=== PATIENT | male | born 1955 ===

== ENCOUNTER → 2016-12-09 | Outpatient (CLI) | payer OTHER ==
--- NOTE | 2016-12-09 13:08 | US ---
EXAMINATION TYPE: US abdomen complete DATE OF EXAM: 12/09/2016 COMPARISON: NONE CLINICAL HISTORY: R10 Right Upper Quadrant abdominal pain. Epigastric pain, history of kidney stones 10 years ago EXAM MEASUREMENTS: Liver Length: 17.2 cm Gallbladder Wall: 0.3 cm CBD: 0.3 cm Spleen: 9.1 cm Right Kidney: 10.4 x 6.6 x 6.4 cm Left Kidney: 10.5 x 5.9 x 5.1 cm Pancreas: Obscured by bowel gas Liver: upper limits of normal in size, attenuating, hypoechoic area near GB = 1.3 x 1.0 x 1.2cm poss ible focal sparing Gallbladder: non-mobile hyperechoic area = 0.4cm, possible polyp Evidence for sonographic Galloway's sign: No CBD: wnl Spleen: wnl Right Kidney: no evidence of hydronephrosis or mass Left Kidney: complex cystic areas noted, largest = 1.9 x 1.6 x 1.2cm at upper pole Upper IVC: wnl Abd Aorta: proximal obscured by overlying bowel Pancreas is not visualized. The liver is upper limits of normal in size and slightly echogenic and may be fatty infiltrated. Ther e is an area of focal fatty sparing near the gallbladder fossa. There is a 4 mm gallbladder polyp. The gallbladder wall measures 3 mm. The distal common hepatic duct measures 3 mm. The spleen is normal in size. The right kidney is normal. There is a 1.9 cm cystic lesion in the lower left kidney. This does not m eet the requirements of a simple cyst. Visualized portions of the aorta and IVC are normal. IMPRESSION: 1. BORDERLINE HEPATOMEGALY WITH FATTY INFILTRATION OF THE LIVER. 2. GALLBLADDER POLYP. 3. CYSTIC LESIONS WITHIN THE LEFT KIDNEY DOES NOT MEET THE REQUIREMENTS OF A SIMPLE CYST. FURTHER RICKY GING WITH CT OR MR WOULD BE SUGGESTED.
--- NOTE | 2016-12-09 15:23 | NM ---
EXAMINATION TYPE: NM hepatobiliary w EF DATE OF EXAM: 12/09/2016 COMPARISON: Ultrasound abdomen 12/09/2016 HISTORY: Right upper quadrant pain TECHNIQUE: After the intravenous administration of 5.2 mCi Tc 99m Mebrofenin hepatobiliary scintigrap hy is performed. Immediate images post injection. FINDINGS: There is satisfactory initial accumulation of tracer by the liver. The gallbladder is visualized wit hin 8 minutes. The small bowel activity is noted within 44 minutes. At one hour 8 ounces of oral en sure plus is given to mimic CCK and gallbladder ejection fraction is calculated at 68 %, in the umesh l range. Therefore there is no scintigraphic evidence of cystic or common bile duct obstruction to s uggest acute cholecystitis or gallbladder dyskinesia. IMPRESSION: Exam is within normal limits.
== END | disposition home or self-care (01) ==
LOC: RADUSMAIN 12:03
PROVIDERS: ATTEND Family Medicine
DX: K82.4 Cholesterolosis of gallbladder (principal); R16.0 Hepatomegaly, not elsewhere classified; K76.0 Fatty (change of) liver, not elsewhere classified; N28.9 Disorder of kidney and ureter, unspecified
CPT/HCPCS: 76700; 78226; A9537

== ENCOUNTER 2016-12-18 08:06 | Day surgery (SDC) | payer OTHER ==
[2016-12-17 09:00] VITALS: BMI 29.1
[~2016-12-18 08:06] MED LIST: LACTATED RINGERS 1,000 ML IV SCH; LIDOCAINE 1% 20 ML VIAL (10MG/ML) FOR IV START INTRADERMA PRN
[2016-12-18 08:45] VITALS: RESP 16; TEMP 98.1
[2016-12-18 08:56] LABS: Glucose,Whole Blood 134 mg/dL (75-99)
[2016-12-18] MEDS ORDERED: LIDOCAINE 1% INJ 10MG/ML (20 ML MDV) ONE (09:36)
[2016-12-18] MEDS ORDERED: PROPOFOL 10 MG/ML 20 ML VIAL IV ONE (09:36)
--- NOTE | 2016-12-18 09:41 | P.GSHP ---
History of Present Illness H&P Date: 12/18/16 Chief Complaint: Epigastric pain This is a 60-year-old male referred from Dr. brody. Patient presents today for EGD. He's had complaints of epigastric abdominal pain. Past Medical History Past Medical History: Diabetes Mellitus, GERD/Reflux, Hyperlipidemia, Hypertension History of Any Multi-Drug Resistant Organisms: None Reported Past Surgical History: No Surgical Hx Reported Additional Past Surgical History / Comment(s): COLONOSCOPY Past Anesthesia/Blood Transfusion Reactions: No Reported Reaction Smoking Status: Never smoker - Past Family History Sister(s) Family Medical History: Cancer Medications and Allergies Home Medications Medication Instructions Recorded Confirmed Type Aspirin 81 mg PO DAILY 12/05/13 12/17/16 History Lisinopril [Prinivil] 10 mg PO DAILY 12/05/13 12/18/16 History Ranitidine HCl 150 mg PO DAILY 12/05/13 12/18/16 History Simvastatin [Zocor] 20 mg PO DAILY 12/05/13 12/18/16 History metFORMIN HCL 1,000 mg PO BID 12/05/13 12/18/16 History [place]-3 Fatty Acids/Fish Oil [Fish 1 each PO DAILY 12/17/16 12/17/16 History Oil 1,000 mg Softgel] glipiZIDE [Glucotrol] 5 mg PO AC-[id number] 12/17/16 12/18/16 History Allergies Allergy/AdvReac Type Severity Reaction Status Date / Time No Known Allergies Allergy Verified 12/17/16 08:35 Surgical - Exam Vital Signs Temp Pulse Resp BP Pulse Ox 98.1 F 82 16 120/84 95 12/18/16 08:37 12/18/16 08:37 12/18/16 08:37 12/18/16 08:37 12/18/16 08:37 - General well developed, no distress - Eyes PERRL - ENT normal pinna - Neck no masses - Respiratory normal expansion - Cardiovascular Rhythm: regular - Abdomen Abdomen: soft, non tender Results - Labs Abnormal Lab Results - Last 24 Hours (Table) 12/18/16 Range/Units 08:48 POC Glucose (mg/dL) 134 H (75-99) mg/dL Assessment and Plan Plan: Epigastric abdominal pain. We'll perform EGD.
--- NOTE | 2016-12-18 09:47 | P.OP ---
Date of Procedure: 12/18/16 Preoperative Diagnosis: Epigastric abdominal pain Postoperative Diagnosis: Healing antral ulcer No evidence of hiatal hernia No evidence of esophagitis Procedure(s) Performed: EGD Implants: Anesthesia: MAC Surgeon: Karlos Seymour Pathology: other (Antrum) Condition: stable Disposition: PACU Indications for Procedure: Operative Findings: Description of Procedure: The patient was placed on the endoscopy table in the lateral position. The gastroscope some placed oropharynx and passed in the esophagus and into the stomach. The scope was then placed through the pylorus. The first and second portion of the duodenum appeared normal. Scope was then brought back and the antrum and there was a small healing ulcer seen. This area is biopsied. There was no active bleeding from the ulcer site. The scope was then retroflexed and the remainder stomach appeared normal. There was no hiatal hernia. The GE junction was at 40 cm. The distal esophagus appeared normal. The proximal esophagus appeared normal. Scope was withdrawn for patient. Patient was discharged on omeprazole 40 mg by mouth daily.
[2016-12-18 10:02] VITALS: BP 100/64; PULSE 76
== END 2016-12-18 10:25 | disposition home or self-care (01) ==
LOC: ORWHC2ENDO 08:06
PROVIDERS: ATTEND Surgery
DX: K29.50 Unspecified chronic gastritis without bleeding (principal); K25.9 Gastric ulcer, unspecified as acute or chronic, without hemorrhage or perforation; K21.9 Gastro-esophageal reflux disease without esophagitis; E11.9 Type 2 diabetes mellitus without complications; Z79.84 Long term (current) use of oral hypoglycemic drugs; E78.5 Hyperlipidemia, unspecified; I10 Essential (primary) hypertension; Z79.82 Long term (current) use of aspirin; Z79.899 Other long term (current) drug therapy
CPT/HCPCS: 88305; 88342; 43239; J2001; J2704

== ENCOUNTER 2016-12-25 09:22 | Day surgery (SDC) | payer OTHER ==
[2016-12-23 10:04] VITALS: BMI 29.1
[~2016-12-25 09:22] MED LIST changes: +DEXAMETHASONE SOD PHOSPHATE 10 MG/ML 1 ML VIAL IV ONE; +HEPARIN SODIUM,PORCINE 5,000 UNIT/ML 1 ML VIAL SQ ONE; +HYDROmorphone 1 MG/ML 1 ML SYRINGE IVP PRN; +LACTATED RINGERS 1,000 ML IV ONE; -LACTATED RINGERS 1,000 ML IV SCH; -LIDOCAINE 1% 20 ML VIAL (10MG/ML) FOR IV START INTRADERMA PRN; +MIDAZOLAM 2 MG/2 ML VIAL IV PRN; +ONDANSETRON 4 MG/2 ML VIAL IVP ONE; +SCOPOLAMINE 1.5MG/72HR PATCH TRANSDERM ONE; +ceFAZolin 2 GM in SODIUM CHLORIDE 0.9% 100 ML IVPB ONE
[2016-12-25 09:47] LABS: Glucose,Whole Blood 152 mg/dL (75-99)
[2016-12-25] MEDS ORDERED: LIDOCAINE 1% 20 ML VIAL (10MG/ML) FOR IV START INTRADERMA ONE (09:50)
--- NOTE | 2016-12-25 10:16 | P.GSHP ---
History of Present Illness H&P Date: 12/25/16 Chief Complaint: Epigastric and right upper quadrant pain This is a 59-year-old male who presents today for laparoscopic cholecystectomy. Patient had recent complaints of epigastric right upper quadrant pain. His ultrasound shows evidence of a gallstone or gallbladder wall polyp. He presents today for laparoscopic was taken for chronic cholecystitis. - Constitutional Constitutional: Reports as per HPI Past Medical History Past Medical History: Diabetes Mellitus, GERD/Reflux, Hyperlipidemia, Hypertension History of Any Multi-Drug Resistant Organisms: None Reported Past Surgical History: No Surgical Hx Reported Additional Past Surgical History / Comment(s): COLONOSCOPY Past Anesthesia/Blood Transfusion Reactions: No Reported Reaction Past Psychological History: No Psychological Hx Reported Smoking Status: Never smoker Past Alcohol Use History: None Reported Past Drug Use History: None Reported - Past Family History Sister(s) Family Medical History: Cancer Medications and Allergies Home Medications Medication Instructions Recorded Confirmed Type Aspirin 81 mg PO DAILY 12/05/13 12/25/16 History Lisinopril [Prinivil] 10 mg PO HS 12/05/13 12/25/16 History Ranitidine HCl 150 mg PO HS 12/05/13 12/25/16 History Simvastatin [Zocor] 20 mg PO HS 12/05/13 12/25/16 History metFORMIN HCL 1,000 mg PO BID 12/05/13 12/25/16 History [place]-3 Fatty Acids/Fish Oil [Fish 1 each PO DAILY 12/17/16 12/25/16 History Oil 1,000 mg Softgel] glipiZIDE [Glucotrol] 5 mg PO HS 12/17/16 12/25/16 History Omeprazole 40 mg PO HS 12/23/16 12/25/16 History Allergies Allergy/AdvReac Type Severity Reaction Status Date / Time No Known Allergies Allergy Verified 12/25/16 09:53 Surgical - Exam Vital Signs Temp Pulse Resp BP Pulse Ox 98.3 F 85 20 146/65 94 L 12/25/16 09:42 12/25/16 09:42 12/25/16 09:42 12/25/16 09:42 12/25/16 09:42 - General well developed, no distress - Eyes PERRL - ENT normal pinna - Neck no masses - Respiratory normal expansion - Cardiovascular Rhythm: regular - Abdomen Mild right upper quadrant tenderness Abdomen: soft Results - Labs Abnormal Lab Results - Last 24 Hours (Table) 12/25/16 Range/Units 09:44 POC Glucose (mg/dL) 152 H (75-99) mg/dL Assessment and Plan Plan: Right upper quadrant pain Chronic cholecystitis We'll perform laparoscopic cholecystectomy
[2016-12-25] MEDS ORDERED: BUPIVACAIN-EPI 0.5%-1:200,000 30 ML VIAL SQ ONE (10:21)
[2016-12-25] MEDS ORDERED: MIDAZOLAM 2 MG/2 ML VIAL ONE (10:34)
[2016-12-25] MEDS ORDERED: NEOSTIGMINE 1 MG/ML 10 ML VIAL ONE (10:34)
[2016-12-25] MEDS ORDERED: LIDOCAINE 1% INJ 10MG/ML (20 ML MDV) ONE (10:34)
[2016-12-25] MEDS ORDERED: KETOROLAC 30 MG/ML 1 ML VIAL ONE (10:34)
[2016-12-25] MEDS ORDERED: HYDROmorphone (PF) 1 MG/ML ONE (10:34)
[2016-12-25] MEDS ORDERED: GLYCOPYRROLATE 0.2 MG/ML 2 ML VIAL ONE (10:34)
[2016-12-25] MEDS ORDERED: PROPOFOL 10 MG/ML 20 ML VIAL IV ONE (10:34)
[2016-12-25] MEDS ORDERED: VECURONIUM 10 MG VIAL IV ONE (10:34)
[2016-12-25] MEDS ORDERED: fentaNYL (PF) 50 MCG/ML 2 ML AMP ONE (10:34)
[2016-12-25] MEDS ORDERED: LACTATED RINGERS 1,000 ML IV ONE ×3 (11:13)
--- NOTE | 2016-12-25 11:23 | P.OP ---
Date of Procedure: 12/25/16 Preoperative Diagnosis: Cholecystitis Postoperative Diagnosis: Cholecystitis Procedure(s) Performed: Laparoscopic cholecystectomy Implants: Anesthesia: CORBY Surgeon: Karlos Seymour Estimated Blood Loss (ml): 5 Pathology: other Condition: stable Disposition: PACU Indications for Procedure: Operative Findings: Description of Procedure: GaThe patient was placed on the operating table. The patient received a general endotracheal tube anesthesia. The patients abdomen was prepped and draped in the usual sterile fashion. Through an infraumbilical stab incision , the fascia of the anterior abdominal wall was grasped with a pair of Kochers and then the Veress needle was placed in the peritoneal cavity. Position of the Veress needle was confirmed with positive drop test. The abdomen was then insufflated. After adequate insufflation, the 10 mm trocar was placed in the peritoneal cavity. Following this the laparoscope was placed in the peritoneal cavity. The patient was placed in the head-up, right side up position and then a 5 mm trocar was placed in the right lateral and right subcostal position under direct visualization. A 8 mm trocar was placed in the epigastric position. The gallbladder was grasped in the fundus and infundibulum. Traction on the gallbladder was placed in the lateral and the cephalad positions. The triangle of Calot was visualized.. The cystic duct was bluntly dissected until the union of the cystic duct and common bile duct was seen. The cystic duct was then divided and sealed with the Harmonic scissors. A PDS Endoloop was then placed throughout the cystic duct stump. The cystic artery divided and sealed with the Harmonic scissors. The gallbladder was then removed from the liver bed using Harmonic scissors. The gallbladder was then extracted through the epigastric port site. Operative field was checked for any bleeding spots and Harmonic scissors was used to coagulate the liver bed. The abdomen was irrigated. The trocars were removed. The skin was closed using interrupted 3-0 Vicryl suture. Dermabond dressing were applied. The patient tolerated the procedure well.
[2016-12-25 11:40] VITALS: TEMP 97
[2016-12-25 11:54] LABS: Glucose,Whole Blood 203 mg/dL (75-99)
[2016-12-25 13:37] VITALS: RESP 18
[2016-12-25 13:59] LABS: Glucose,Whole Blood 190 mg/dL (75-99)
[2016-12-25 15:22] VITALS: BP 141/75; PULSE 89
== END 2016-12-25 15:49 | disposition home or self-care (01) ==
LOC: OR 09:22
PROVIDERS: ATTEND Surgery
DX: K81.1 Chronic cholecystitis (principal); I10 Essential (primary) hypertension; E78.5 Hyperlipidemia, unspecified; E11.9 Type 2 diabetes mellitus without complications; K21.9 Gastro-esophageal reflux disease without esophagitis; Z79.84 Long term (current) use of oral hypoglycemic drugs; Z79.82 Long term (current) use of aspirin; Z79.899 Other long term (current) drug therapy
CPT/HCPCS: 47562; 88304; J2250; J1644; J1100; J2710; J0690; J2405; J2001; J3010; J1885; J1170; J2704

== ENCOUNTER 2018-09-23 14:45 | Observation (INO) | payer OTHER ==
[2018-09-23] MEDS ORDERED: ASPIRIN 81 MG PO STA (15:15)
[2018-09-23] MEDS ORDERED: RX INFO: IV CONTRAST WAS GIVEN 1 EACH MISC MISCELLANE PRN (15:18)
[2018-09-23 15:43] LABS: ALT 32 U/L (21-72); AST 22 U/L (17-59); Albumin 4.6 g/dL (3.5-5.0); Alkaline Phosphatase 49 U/L (38-126); Anion Gap 11 mmol/L; Blood Urea Nitrogen 22 mg/dL (9-20); Calcium 9.4 mg/dL (8.4-10.2); Carbon Dioxide 23 mmol/L (22-30); Chloride 105 mmol/L (98-107); Glucose 159 mg/dL (74-99); Magnesium 1.9 mg/dL (1.6-2.3); Potassium 3.9 mmol/L (3.5-5.1); Sodium 139 mmol/L (137-145); Total Bilirubin 0.6 mg/dL (0.2-1.3); Total Protein 7.4 g/dL (6.3-8.2)
[2018-09-23 15:47] LABS: Basophils % (A) 1 %; Eosinophils # (A) 0.1 k/uL (0-0.7); Eosinophils % (A) 1 %; HCT 41.2 % (39.0-53.0); HGB 13.5 gm/dL (13.0-17.5); Lymphocytes % (A) 31 %; MCH 28.7 pg (25.0-35.0); MCHC 32.7 g/dL (31.0-37.0); MCV 87.8 fL (80.0-100.0); Mean Platelet Volume 8.3; Monocytes # (A) 0.3 k/uL (0-1.0); Monocytes % (A) 4 %; Neutrophils % (A) 62 %; Platelet Count 202 k/uL (150-450); RBC 4.69 m/uL (4.30-5.90); RDW 13.1 % (11.5-15.5); WBC 6.5 k/uL (3.8-10.6)
[2018-09-23 15:49] LABS: Partial Thromboplastin Time 23.2 sec (22.0-30.0); Prothrombin Time 10.3 sec (9.0-12.0)
--- NOTE | 2018-09-23 17:11 | XR ---
EXAMINATION TYPE: XR chest 2V DATE OF EXAM: 09/23/2018 COMPARISON: NONE HISTORY: Chest pain TECHNIQUE: Frontal and lateral views of the chest are obtained. FINDINGS: Heart and mediastinum are normal. Lungs are clear. Diaphragm is normal. Bony thorax is int act. Pulmonary vascularity is normal. There are chest leads. IMPRESSION: Normal chest.
--- NOTE | 2018-09-23 17:27 | CT ---
EXAMINATION TYPE: CT angio head neck DATE OF EXAM: 09/23/2018 HISTORY: Left sided facial and arm numbness with Chest pain for 3 weeks COMPARISON: CT DLP: 1903.5 mGycm. Automated Exposure Control for Dose Reduction was Utilized. TECHNIQUE: CTA scan of the neck is performed with IV Contrast, patient injected with 65 mL of Isovue 370, axial images are obtained, coronal and sagittal reformatted images are reviewed. Three-D recons tructed images are created on an independent workstation and reviewed. FINDINGS: The noncontrast images of the brain show cerebral atrophy. There is no mass effect nor midline shift. There is no sign of intracranial hemorrhage. There is arterial flow in the common internal and external carotid arteries bilaterally. There is art erial flow in the vertebrobasilar artery system. There is bilateral arterial flow in the basilar sonya harsha which are fairly symmetric. There is normal branching pattern of the great vessels on the aortic arch. There is bilateral flow in the subclavian arteries. There is no evidence of arterial stenosis in the neck. There is normal contrast opacification of the venous sinuses. There is arterial flow in the anterior middle and posterior cerebral arteries. I see no evidence of intracranial arterial stenosis. There is no aneurysm or neovascularity. IMPRESSION: Negative CT angiogram of the neck. Negative CT angiogram of the brain.
--- NOTE | 2018-09-23 19:08 | ED ---
Chest Pain HPI - General Chief Complaint: Chest Pain Stated Complaint: Chest Pain, Facial Numbness Time Seen by Provider: 09/23/18 15:01 Source: patient, family Mode of arrival: ambulatory Limitations: no limitations - History of Present Illness Initial Comments: The patient is a 62-year-old male who presents to the emergency room with complaint of chest pain. Patient notes that the symptoms have been going on for the past 2 weeks. They wax and wane. He will have sudden onset of chest pain which is located over the left side of his chest with radiation into his left arm. He admits to associated left-sided facial paresthesias as well as left upper extremity paresthesias. He admits to mild left upper extremity weakness. There is associated shortness of breath. The pain will last for several hours and then spontaneously resolved. The episodes do appear to be exacerbated by exertion. Improve with rest. He does not take any medications for his symptoms. No previous cardiac disease. His last stress test was approximately 3 years ago and was normal. There is no reported slurred speech, confusion or facial droop reported from the . Patient admits that his symptoms worsened approximately 48 hours ago and this prompted him to come in to the emergency department. He denies any visual changes. Denies abdominal pain or changes in his bowel or bladder habits. No difficulties with ambulation. Denies ataxia. No headaches, fevers or chills. Patient denies cough or hemoptysis - Related Data Home Medications Medication Instructions Recorded Confirmed Aspirin 81 mg PO DAILY 12/05/13 09/23/18 Lisinopril [Prinivil] 10 mg PO HS 12/05/13 09/23/18 Ranitidine HCl 150 mg PO HS 12/05/13 09/23/18 Simvastatin [Zocor] 20 mg PO HS 12/05/13 09/23/18 metFORMIN HCL 1,000 mg PO BID 12/05/13 09/23/18 [place]-3 Fatty Acids/Fish Oil [Fish 1 cap PO DAILY 12/17/16 09/23/18 Oil 1,000 mg Softgel] glipiZIDE [Glucotrol] 5 mg PO HS 12/17/16 09/23/18 Allergies Allergy/AdvReac Type Severity Reaction Status Date / Time No Known Allergies Allergy Verified 09/23/18 15:38 Review of Systems ROS Statement: Those systems with pertinent positive or pertinent negative responses have been documented in the HPI. ROS Other: All systems not noted in ROS Statement are negative. EKG Findings - EKG Comments: EKG Findings:: EKG demonstrates a normal sinus rhythm with a ventricular rate of 80. CT interval 180 QRS 98 QTC [address]. No acute ST segment elevations or depressions concerning for ischemic changes. Past Medical History Past Medical History: Diabetes Mellitus, GERD/Reflux, Hyperlipidemia, Hypertension History of Any Multi-Drug Resistant Organisms: None Reported Past Surgical History: No Surgical Hx Reported Additional Past Surgical History / Comment(s): COLONOSCOPY Past Anesthesia/Blood Transfusion Reactions: No Reported Reaction Past Psychological History: No Psychological Hx Reported Smoking Status: Never smoker Past Alcohol Use History: None Reported Past Drug Use History: None Reported - Past Family History Sister(s) Family Medical History: Cancer General Exam Limitations: no limitations General appearance: alert, in no apparent distress Head exam: Present: atraumatic, normocephalic, normal inspection Eye exam: Present: normal appearance, PERRL, EOMI. Absent: scleral icterus, conjunctival injection, periorbital swelling ENT exam: Present: normal exam, mucous membranes moist Neck exam: Present: normal inspection. Absent: tenderness, meningismus, lymphadenopathy Respiratory exam: Present: normal lung sounds bilaterally. Absent: respiratory distress, wheezes, rales, rhonchi, stridor Cardiovascular Exam: Present: regular rate, normal rhythm, normal heart sounds. Absent: systolic murmur, diastolic murmur, rubs, gallop, clicks GI/Abdominal exam: Present: soft, normal bowel sounds. Absent: distended, tenderness, guarding, rebound, rigid Extremities exam: Present: normal inspection, full ROM, normal capillary refill. Absent: tenderness, pedal edema, joint swelling, calf tenderness Back exam: Present: normal inspection Neurological exam: Present: alert, oriented X3, CN II-XII intact, other (Negative pronator drift. No truncal ataxia. Finger to nose is symmetric bilaterally. No dysdiadochokinesia. Equal tub chucker strength bilaterally. NIH score is 0) Psychiatric exam: Present: normal affect, normal mood Skin exam: Present: warm, dry, intact, normal color. Absent: rash Course Vital Signs 09/23/18 09/23/18 09/23/18 14:48 15:15 16:00 Temperature 98.3 F Pulse Rate 74 80 78 Respiratory 18 16 19 Rate Blood Pressure 136/84 138/80 O2 Sat by Pulse 98 96 Oximetry 09/23/18 09/23/18 17:00 18:00 Temperature Pulse Rate 77 70 Respiratory 16 15 Rate Blood Pressure 138/79 127/75 O2 Sat by Pulse 97 97 Oximetry Chest Pain MDM - Differential Diagnosis ACS, Thoracic Aortic Dissection Stroke - MDM The patient was seen by myself. He was placed into room 5. He was hooked up to continuous pulse ox and cardiac monitoring. A 12-lead EKG was performed which demonstrated normal sinus rhythm. The patient was given 324 mg of chewable aspirin. Laboratory studies were performed. The patient was sent for a chest x-ray as well as a CTA of the head and neck. The patient was reevaluated and continued to have an NIH stroke scale of 0. He was not activated as a code stroke as his symptoms started greater than 24 hours ago and he has a negative stroke scale at this time. After return of the results I did discuss them with the patient. I did recommend admission to the hospital in order to trend the patient's troponins and keep him on cardiac monitoring. I did call and discuss the case with Dr. Rose. He does accept admission for the patient. He does recommend that I place cardiology on consult for the patient's chest pain. He also recommends an MRI without contrast of the patient's brain. I do place these orders. Patient remained in stable condition and was transported to the observation unit. Disposition Clinical Impression: Chest pain Disposition: ADMITTED IP TO THIS HOSP Condition: Stable Is patient prescribed a controlled substance at d/c from ED?: No Time of Disposition: 19:08 Decision to Admit Reason: Admit from EC Decision Date: 09/23/18 Decision Time: 19:08
--- NOTE | 2018-09-23 21:15 | MR ---
EXAMINATION TYPE: MR brain wo con DATE OF EXAM: 09/23/2018 COMPARISON: None HISTORY: left side numbness Standard multiplanar, multisequence MRI departmental protocol Multiplanar, multisequence images of the brain were acquired. Diffusion weighted imaging was performe d. FINDINGS: Ventricles of normal size. There is no mass effect nor midline shift. There is no sign of i ntracranial hemorrhage. Brainstem is intact. There is mild mucosal thickening in the maxillary sinuse s and the ethmoid sinuses. There are discrete scattered multiple rounded high signal foci at the espinoza-white matter junction of b oth cerebral hemispheres. Total number is approximately 25 and these measure up to 5 mm. The corpus c allosum is intact. There is no evidence of cortical infarct. IMPRESSION: Multiple small high signal white matter foci with distribution likely related to chronic small vessel ischemia. Demyelinating disease is less likely. No evidence of cortical infarct. Minimal sinusitis.
[2018-09-23 21:30] LABS: Glucose,Whole Blood 157 mg/dL (75-99)
[2018-09-23] MEDS: INSULIN ASPART (NovoLOG) 100 UNIT/ML VIAL SQ SCH (23:33)
[2018-09-23] MEDS: LISINOPRIL 10 MG TAB PO SCH (23:33)
[2018-09-23] MEDS: ATORVASTATIN 10 MG TAB PO SCH (23:33)
[2018-09-23] MEDS: FAMOTIDINE 20 MG TAB PO SCH (23:33)
[2018-09-23] MEDS: glipiZIDE 5 MG TAB PO SCH (23:33)
[2018-09-24 03:11] LABS: Basophils # (A) 0.1 k/uL (0-0.2); Basophils % (A) 1 %; Eosinophils # (A) 0.3 k/uL (0-0.7); Eosinophils % (A) 4 %; HCT 40.3 % (39.0-53.0); HGB 13.5 gm/dL (13.0-17.5); Lymphocytes % (A) 45 %; MCH 29.3 pg (25.0-35.0); MCHC 33.6 g/dL (31.0-37.0); MCV 87.1 fL (80.0-100.0); Mean Platelet Volume 8.4; Monocytes # (A) 0.3 k/uL (0-1.0); Monocytes % (A) 5 %; Neutrophils % (A) 44 %; Platelet Count 218 k/uL (150-450); RBC 4.62 m/uL (4.30-5.90); RDW 13.8 % (11.5-15.5); WBC 6.7 k/uL (3.8-10.6)
[2018-09-24 03:15] LABS: Anion Gap 7 mmol/L; Blood Urea Nitrogen 22 mg/dL (9-20); Calcium 9.5 mg/dL (8.4-10.2); Carbon Dioxide 27 mmol/L (22-30); Chloride 103 mmol/L (98-107); Glucose 170 mg/dL (74-99); Potassium 3.8 mmol/L (3.5-5.1); Sodium 137 mmol/L (137-145)
[2018-09-24 06:55] LABS: Glucose,Whole Blood 135 mg/dL (75-99)
[2018-09-24] MEDS: INSULIN ASPART (NovoLOG) 100 UNIT/ML VIAL SQ SCH ×4 (08:25→20:41)
[2018-09-24] MEDS: Omega-3 Fatty Acids/Fish Oil [Fish Oil 1,000 Mg Softgel] 1 CAP PO SCH (08:30)
[2018-09-24] MEDS: ASPIRIN 81 MG PO SCH (08:30)
--- NOTE | 2018-09-24 10:55 | P.CRDCN ---
History of Present Illness History of present illness: This is a pleasant 62-year-old male past medical history significant for hypertension, diabetes mellitus, dyslipidemia and gastroesophageal reflux disease. He denies history of coronary artery disease and does not follow with a director power. We've been asked to see him in consultation secondary to chest discomfort. He states over the previous 2 weeks he has felt intermittent episodes of a sharp discomfort in the left precordial region with no specific aggravating or alleviating factors. He has not had any cough, fever or chills. He states he also has noticed numbness and tingling in the left side of his face, abnormalities with the left side of his lip with a dripping sensation as well as numbness and tingling down the left arm and into the left hand. His chest discomfort is very intermittent however the numbness and tingling of the face, arm and hand have been constant. He denies associated shortness of breath, dizziness, palpitations, nausea, vomiting or diaphoresis. Upon arrival to the emergency department he underwent an MRI of the brain revealing multiple smiled signal white matter foci likely related to chronic small vessel ischemia, no evidence of cortical infarct. EKG reveals sinus mechanism with no acute ST or T wave abnormalities noted. Telemetry tracings have been unremarkable. Chest x-ray is negative for an acute cardiopulmonary process. CTA head and neck are negative. Laboratory data reviewed, cardiac enzymes negative 3, sodium 137, potassium 3.8 , creatinine 0.87, magnesium 1.9. Current cardiac medications include aspirin 81 mg daily, lisinopril 10 mg daily, simvastatin 20 mg daily. In 2014 he underwent an exercise stress test which revealed limited exercise tolerance and nondiagnostic EKG changes with exercise. Most recent echocardiogram obtained in 2014 reveals preserved left ventricular systolic function with ejection fraction 60-65%, mild MR, mild TR and mild pulmonary hypertension. At the time of my exam: CONSTITUTIONAL: Denies fever. Denies chills. EYES: Denies blurred vision. Denies vision changes. Denies eye pain. EARS, NOSE, MOUTH & THROAT: Denies headache. Denies sore throat. Denies ear pain. CARDIOVASCULAR: Denies chest pain. Denies shortness of breath. Denies orthopnea. Denies PND. Denies palpitations. RESPIRATORY: Denies cough. GASTROINTESTINAL: Denies abdominal pain. Denies diarrhea. Denies constipation. Denies nausea. Denies vomiting. MUSCULOSKELETAL: Denies myalgias. INTEGUMENTARY: Denies pruitis. Denies rash. NEUROLOGIC: Denies numbness. Denies tingling. Denies weakness. PSYCHIATRIC: Denies anxiety. Denies depression. ENDOCRINE: Denies fatigue. Denies weight change. Denies polydipsia. Denies polyurina. GENITOURINARY: Denies burning, hematuria or urgency with micturation. HEMATOLOGIC: Denies history of anemia. Denies bleeding. Blood pressure 128/71 heart rate 73 afebrile maintaining oxygen saturation on room air GENERAL: This is a 62-year-old male in no apparent distress at the time of my examination. HEENT: Head is atraumatic, normocephalic. Pupils are equal, round. Sclerae anicteric. Conjunctivae are clear. Mucous membranes of the mouth are moist. Neck is supple. There is no jugular venous distention. No carotid bruit is heard. LUNGS: Clear to auscultation no wheezes, rales or rhonchi. No chest wall tenderness is noted on palpation or with deep breathing. HEART: Regular rate and rhythm without murmurs, rubs or gallops. S1 and S2 heard. ABDOMEN: Soft, nontender. Bowel sounds are heard. No organomegaly noted. EXTREMITIES: No evidence of peripheral edema and no calf tenderness noted. VASCULAR: Radial and dorsalis pedis pulses palpated, no evidence of clubbing. NEUROLOGIC: Patient is awake, alert and oriented x3. ASSESSMENT Chest pain, atypical for angina. An acute coronary event has been ruled out. Symptoms suggestive of possible TIA versus CVA. Ongoing management and evaluat ion per the primary care team. Hypertension Dyslipidemia Diabetes mellitus PLAN Obtain 2-D echocardiogram and Doppler study to assess cardiac structure and function. Perform bilateral carotid duplex. CTA of the head and neck neck, and whether there is any stenosis or plaque noted in the carotid arteries. Overall stable from a cardiac perspective. Ongoing telemetry monitoring for the possibility of atrial fibrillation. Thank you kindly for this consultation. Nurse Practitioner note has been reviewed, I agree with a documented findings and plan of care. Patient was seen and examined. Past Medical History Past Medical History: Diabetes Mellitus, GERD/Reflux, Hyperlipidemia, Hypertension History of Any Multi-Drug Resistant Organisms: None Reported Past Surgical History: Cholecystectomy Additional Past Surgical History / Comment(s): COLONOSCOPY Past Anesthesia/Blood Transfusion Reactions: No Reported Reaction Past Psychological History: Depression Smoking Status: Never smoker Past Alcohol Use History: None Reported Past Drug Use History: None Reported - Past Family History Sister(s) Family Medical History: Cancer Medications and Allergies Home Medications Medication Instructions Recorded Confirmed Type Aspirin 81 mg PO DAILY 12/05/13 09/23/18 History Lisinopril [Prinivil] 10 mg PO HS 12/05/13 09/23/18 History Ranitidine HCl 150 mg PO HS 12/05/13 09/23/18 History Simvastatin [Zocor] 20 mg PO HS 12/05/13 09/23/18 History metFORMIN HCL 1,000 mg PO BID 12/05/13 09/23/18 History [place]-3 Fatty Acids/Fish Oil [Fish 1 cap PO DAILY 12/17/16 09/23/18 History Oil 1,000 mg Softgel] glipiZIDE [Glucotrol] 5 mg PO HS 12/17/16 09/23/18 History Allergies Allergy/AdvReac Type Severity Reaction Status Date / Time No Known Allergies Allergy Verified 09/23/18 21:40 Physical Exam Vitals: Vital Signs Temp Pulse Pulse Pulse Resp BP BP 09/24/18 04:00 98.2 F 66 15 130/84 09/23/18 23:58 97.9 F 67 15 142/78 09/23/18 22:21 15 09/23/18 20:00 97.6 F 76 15 147/81 09/23/18 18:00 70 15 127/75 09/23/18 17:00 77 16 138/79 09/23/18 16:00 78 19 138/80 09/23/18 15:15 80 16 09/23/18 14:48 98.3 F 74 18 136/84 Pulse Ox 09/24/18 04:00 98 09/23/18 23:58 97 09/23/18 22:21 09/23/18 20:00 96 09/23/18 18:00 97 09/23/18 17:00 97 09/23/18 16:00 96 09/23/18 15:15 09/23/18 14:48 98 Intake and Output 09/23/18 09/24/18 09/24/18 22:59 06:59 14:59 Other: Voiding Method Toilet Toilet # Voids 1 Results 09/24/18 02:51 09/24/18 02:51 Cardiac Enzymes 09/23/18 09/23/18 09/23/18 Range/Units 15:20 15:20 21:52 AST 22 (17-59) U/L Troponin I <0.012 <0.012 (0.000-0.034) ng/mL 09/24/18 Range/Units 02:51 AST (17-59) U/L Troponin I <0.012 (0.000-0.034) ng/mL Coagulation 09/23/18 Range/Units 15:20 PT 10.3 (9.0-12.0) sec APTT 23.2 (22.0-30.0) sec CBC 09/23/18 09/24/18 Range/Units 15:20 02:51 WBC 6.5 6.7 (3.8-10.6) k/uL RBC 4.69 4.62 (4.30-5.90) m/uL Hgb 13.5 13.5 (13.0-17.5) gm/dL Hct 41.2 40.3 (39.0-53.0) % Plt Count 202 218 (150-450) k/uL Comprehensive Metabolic Panel 09/23/18 09/24/18 Range/Units 15:20 02:51 Sodium 139 137 (137-145) mmol/L Potassium 3.9 3.8 (3.5-5.1) mmol/L Chloride 105 103 (98-107) mmol/L Carbon Dioxide 23 27 (22-30) mmol/L BUN 22 H 22 H (9-20) mg/dL Creatinine 0.78 0.87 (0.66-1.25) mg/dL Glucose 159 H 170 H (74-99) mg/dL Calcium 9.4 9.5 (8.4-10.2) mg/dL AST 22 (17-59) U/L ALT 32 (21-72) U/L Alkaline Phosphatase 49 (38-126) U/L Total Protein 7.4 (6.3-8.2) g/dL Albumin 4.6 (3.5-5.0) g/dL Current Medications Generic Name Dose Route Start Last Admin Trade Name Freq PRN Reason Stop Dose Admin Aspirin 81 mg 09/24/18 09:00 Aspirin PO DAILY FAM Atorvastatin Calcium 10 mg 09/23/18 21:00 09/23/18 23:33 Lipitor PO 10 mg HS FAM Administration Famotidine 20 mg 09/23/18 21:00 09/23/18 23:33 Pepcid PO 20 mg HS FAM Administration Glipizide 5 mg 09/23/18 23:00 09/23/18 23:33 Glucotrol PO 5 mg HS FAM Administration Insulin Aspart 0 unit 09/23/18 23:19 09/23/18 23:33 Novolog SQ 1 unit ACHS FAM Administration Protocol Lisinopril 10 mg 09/23/18 21:00 09/23/18 23:33 Zestril PO 10 mg HS FAM Administration Metformin HCl 1,000 mg 09/26/18 21:00 Glucophage PO BID COUNT INCLUDES THE [facility] Miscellaneous Information 1 each 09/23/18 15:18 Rx Info: Iv Contrast Was Given MISCELLANE 09/25/18 15:19 DAILY PRN Per Protocol [place]-3 Fatty Acids/ 1 cap 09/24/18 09:00 Fish Oil [Fish Oil 1 PO ,000 Mg Softgel] 1 DAILY COUNT INCLUDES THE [facility] Cap Intake and Output 09/23/18 09/24/18 09/24/18 22:59 06:59 14:59 Other: Voiding Method Toilet Toilet # Voids 1 09/24/18 02:51 09/24/18 02:51
[2018-09-24 11:47] LABS: Glucose,Whole Blood 151 mg/dL (75-99)
--- NOTE | 2018-09-24 12:42 | P.HPIM ---
History of Present Illness H&P Date: 09/24/18 This is a 62-year-old male patient of Dr. Fleming with past medical history of hypertension, hyperlipidemia, diabetes mellitus type 2, gastroesophageal reflux disease. Patient states the chest pain is on the left anterior upper chest area that is nonradiating. Nontender. He does state he continues to have numbness to the left face and left arm but is very slight. Patient is normally right-handed. Patient came into [facility] emergency center for evaluation. He has been afebrile, heart rate in the 60s, blood pressure 120/71, pulse ox 95% on room air. CBC is within normal limits, BUN 22 and creatinine 0.87. Blood sugars running between 135 and 170. Troponins have been negative on 3 draws. MRI of the brain revealed multiple small high signal white matter foci with distribution likely related to chronic small vessel ischemia. Demyelinating disease is less likely. No evidence of cortical infarct. Minimal sinusitis. CT angiogram of the neck and CT angiogram of the brain were negative chest x-ray negative. Patient was given full-strength aspirin in the emergency center and placed in the observation unit and cardiology consult requested. Cardiology has ordered Carotid duplex reveals. Review of Systems All systems: negative Constitutional: Denies chills, Denies fatigue, Denies fever, Denies lethargy, Denies malaise, Denies poor appetite, Denies weakness, Denies weight loss Eyes: denies blurred vision, denies pain Ears, nose, mouth and throat: Denies dysphagia, Denies headache, Denies nasal congestion, Denies nasal discharge, Denies sore throat, Denies vertigo Cardiovascular: Reports chest pain, Denies shortness of breath, Denies syncope Respiratory: Denies cough, Denies cough with sputum, Denies dyspnea, Denies excessive sputum, Denies hemoptysis, Denies home oxygen, Denies wheezing Gastrointestinal: Denies abdominal pain, Denies diarrhea, Denies loss of appetite, Denies nausea, Denies vomiting Genitourinary: Denies dysuria Musculoskeletal: Reports arm numbness/tingling, Reports leg numbness/tingling, Denies frequent falls, Denies gait dysfunction, Denies muscle weakness, Denies myalgias Integumentary: Denies pruritus, Denies rash, Denies wounds Neurological: Reports tingling, Denies aphasia, Denies change in mentation, Denies change in speech, Denies confusion, Denies gait dysfunction, Denies headaches, Denies numbness, Denies seizures, Denies syncope, Denies transient paralysis, Denies vertigo, Denies weakness Psychiatric: Denies anxiety, Denies depression Endocrine: Denies fatigue, Denies weight change Past Medical History Past Medical History: Diabetes Mellitus, GERD/Reflux, Hyperlipidemia, Hypertension History of Any Multi-Drug Resistant Organisms: None Reported Past Surgical History: Cholecystectomy Additional Past Surgical History / Comment(s): COLONOSCOPY Past Anesthesia/Blood Transfusion Reactions: No Reported Reaction Past Psychological History: Depression Smoking Status: Never smoker Past Alcohol Use History: None Reported Past Drug Use History: None Reported - Past Family History Sister(s) Family Medical History: Cancer Medications and Allergies Home Medications Medication Instructions Recorded Confirmed Type Aspirin 81 mg PO DAILY 12/05/13 09/23/18 History Lisinopril [Prinivil] 10 mg PO HS 12/05/13 09/23/18 History Ranitidine HCl 150 mg PO HS 12/05/13 09/23/18 History Simvastatin [Zocor] 20 mg PO HS 12/05/13 09/23/18 History metFORMIN HCL 1,000 mg PO BID 12/05/13 09/23/18 History [place]-3 Fatty Acids/Fish Oil [Fish 1 cap PO DAILY 12/17/16 09/23/18 History Oil 1,000 mg Softgel] glipiZIDE [Glucotrol] 5 mg PO HS 12/17/16 09/23/18 History Allergies Allergy/AdvReac Type Severity Reaction Status Date / Time No Known Allergies Allergy Verified 09/23/18 21:40 Physical Exam Vitals: Vital Signs Temp Pulse Pulse Pulse Pulse Resp BP 09/24/18 08:00 97.6 F 73 18 09/24/18 04:00 98.2 F 66 15 09/23/18 23:58 97.9 F 67 15 09/23/18 22:21 15 09/23/18 20:00 97.6 F 76 15 09/23/18 18:00 70 15 127/75 09/23/18 17:00 77 16 138/79 09/23/18 16:00 78 19 138/80 09/23/18 15:15 80 16 09/23/18 14:48 98.3 F 74 18 136/84 BP Pulse Ox 09/24/18 08:00 128/71 95 09/24/18 04:00 130/84 98 09/23/18 23:58 142/78 97 09/23/18 22:21 09/23/18 20:00 147/81 96 09/23/18 18:00 97 09/23/18 17:00 97 09/23/18 16:00 96 09/23/18 15:15 09/23/18 14:48 98 Intake and Output 09/23/18 09/24/18 09/24/18 22:59 06:59 14:59 Other: Voiding Method Toilet Toilet # Voids 1 Gen: This is a 62-year-old male. He is resting in bed and appears to be comfortable and in no acute distress. HEENT: Head is atraumatic, normocephalic. Pupils equal, round. Sclerae is anicteric. NECK: Supple. No JVD. No lymphadenopathy. No thyromegaly. LUNGS: Clear to auscultation. No wheezes or rhonchi. No intercostal retractions. HEART: Regular rate and rhythm. No murmur. ABDOMEN: Soft. Bowel sounds are present. No masses. No tenderness. EXTREMITIES: No pedal edema. No calf tenderness. NEUROLOGICAL: Patient is awake, alert and oriented x3. Cranial nerves 2 through 12 are grossly intact. Results CBC & Chem 7: 09/24/18 02:51 09/24/18 02:51 Labs: Abnormal Lab Results - Last 24 Hours (Table) 09/23/18 09/23/18 09/24/18 Range/Units 15:20 21:29 02:51 BUN 22 H 22 H (9-20) mg/dL Glucose 159 H 170 H (74-99) mg/dL POC Glucose (mg/dL) 157 H (75-99) mg/dL 09/24/18 Range/Units 06:54 BUN (9-20) mg/dL Glucose (74-99) mg/dL POC Glucose (mg/dL) 135 H (75-99) mg/dL Thrombosis Risk Factor Assmnt - DVT/VTE Prophylaxis DVT/VTE Prophylaxis: Mechanical Prophylaxis ordered - Choose All That Apply Any of the Below Risk Factors Present?: Yes Each Factor Represents 1 point: Obesity (BMI >25) Other Risk Factors: Yes Each Risk Factor Represents 2 Points: Age 61-74 years Other congenital or acquired thrombophilia - If yes, enter type in comment: No Thrombosis Risk Factor Assessment Total Risk Factor Score: 3 Thrombosis Risk Factor Assessment Level: Moderate Risk Assessment and Plan Plan: 1. Chest pain with negative troponins. Acute coronary syndrome ruled out. Cardiology consult appreciated. 2. Left-sided facial paresthesia and left upper extremity paresthesia most likely secondary to cervical spine/radiculopathy. All studies have been negative. Carotid duplex and 2-D echo ordered, continue telemetry monitoring for possible atrial fibrillation. 3. Hypertension. Continue lisinopril 10 mg at bedtime. 4. Hyperlipidemia. Continue simvastatin 20 mg at bedtime. 5. Gastroesophageal reflux disease. Continue ranitidine 150 mg at bedtime. 6. Diabetes mellitus type 2. Continue glipizide 5 mg at bedtime and metformin 1000 mg twice daily is on hold for CAT scan. 7. DVT prophylaxis. Ambulation. Patient twice on the observation unit. Discharge plan: home on Wednesday Impression and plan of care have been directed as dictated by the signing physician. Paula Raines nurse practitioner acting as scribe for signing physician.
[2018-09-24 16:50] LABS: Glucose,Whole Blood 250 mg/dL (75-99)
[2018-09-24 19:58] LABS: Glucose,Whole Blood 142 mg/dL (75-99)
[2018-09-24] MEDS: ATORVASTATIN 10 MG TAB PO SCH (20:56)
[2018-09-24] MEDS: LISINOPRIL 10 MG TAB PO SCH (20:56)
[2018-09-24] MEDS: FAMOTIDINE 20 MG TAB PO SCH (20:56)
[2018-09-24] MEDS: glipiZIDE 5 MG TAB PO SCH (20:56)
[2018-09-25 06:51] LABS: Glucose,Whole Blood 153 mg/dL (75-99)
--- NOTE | 2018-09-25 07:54 | PN ---
PROGRESS NOTE 62-year-old gentleman who was admitted to hospital with left-sided numbness. CTA is negative. MRI is showing changes of chronic small-vessel ischemia. There is no evidence of cortical infarct. His left arm still has some left arm numbness but primary they are thinking more in terms of cervical radiculopathy. The intermittent episodes of chest pain have improved. He did not have any episodes of cardiac arrhythmia. I am going to review the echo results on him. On exam, he is comfortable at rest. Vital signs are stable. Chest exam reveals good air entry bilaterally. Heart exam reveals first and second heart sounds. No gallop. Exam of extremities did not reveal any edema. Labs show a hemoglobin of 13.5, platelet count is 218. Potassium is 3.8 creatinine is 0.87. ASSESSMENT: 1. Precordial chest pain atypical probably noncardiac. We will obtain a stress test on him once his cervical spine issues resolve. 2. Left arm discomfort and left facial numbness, probably related to cervical radiculopathy. No further cardiac workup at this time. If an echo had been done, I will review it, if not we will obtain an echo. MMODL / IJN: [id number] /
[2018-09-25 08:06] VITALS: RESP 18
[2018-09-25] MEDS: ASPIRIN 81 MG PO SCH (08:40)
[2018-09-25] MEDS: Omega-3 Fatty Acids/Fish Oil [Fish Oil 1,000 Mg Softgel] 1 CAP PO SCH (08:41)
[2018-09-25] MEDS: INSULIN ASPART (NovoLOG) 100 UNIT/ML VIAL SQ SCH ×2 (08:41→11:56)
--- NOTE | 2018-09-25 08:48 | US ---
EXAMINATION TYPE: US carotid duplex BILAT DATE OF EXAM: 09/25/2018 COMPARISON: CT angio head neck CLINICAL HISTORY: possible tia. left sided numbness EXAM MEASUREMENTS: RIGHT: Peak Systolic Velocity (PSV) cm/sec ----- Right CCA: 104.8 ----- Right ICA: 95.6 ----- Right ECA: 91.1 ICA/CCA ratio: 0.9 RIGHT: End Diastole cm/sec ----- Right CCA: 27.3 ----- Right ICA: 14.1 ----- Right ECA: 19.7 LEFT: Peak Systolic Velocity (PSV) cm/sec ----- Left CCA: 86.6 ----- Left ICA: 97.7 ----- Left ECA: 107.3 ICA/CCA ratio: 1.1 LEFT: End Diastole cm/sec ----- Left CCA: 24.5 ----- Left ICA: 39.5 ----- Left ECA: 18.0 VERTEBRALS (direction of flow): Right Vertebral: Antegrade Left Vertebral: Antegrade Rhythm: Normal Mild bilateral plaque noted. No significant stenosis seen. IMPRESSION: I DO NOT SEE EVIDENCE OF A HEMODYNAMICALLY SIGNIFICANT STENOSIS IN EITHER CAROTID SYSTEM. Criteria for Assigning % of Stenosis / Diameter reduction (Estimation based on the indirect measurements of the internal carotid artery velocities (ICA PSV). 1. Normal (no stenosis)=ICA PSV < 125 cm/s: ratio < 2.0: ICA EDV<40 cm/s. 2. Less than 50% stenosis=ICA PSV < 125 cm/s: ratio < 2.0: ICA EDV<40 cm/s. 3. 50 to 69% stenosis=ICA PSV of 125 to 230 cm/s: ration 2.0 ? 4.0: ICA EDV 40-100 cm/s. 4. Greater than 70% stenosis to near occlusion= ICA PSV > 230 cm/s: ratio > 4.0: ICA EDV > 100 cm/s. 5. Near occlusion= ICA PSV velocities may be low or undetectable: variable ratio and ICA EDV. 6. Total occlusion=unable to detect flow.
--- NOTE | 2018-09-25 10:52 | ECHOF ---
Referral Reason:LVF MEASUREMENTS -------- HEIGHT: 165.1 cm WEIGHT: 80.3 kg BP: RVIDd: 3.3 cm (< 3.3) IVSd: 1.2 cm (0.6 - 1.1) LVIDd: 4.1 cm (3.9 - 5.3) LVPWd: 1.2 cm (0.6 - 1.1) IVSs: 1.6 cm LVIDs: 2.9 cm LVPWs: 1.4 cm LA Diam: 3.8 cm (2.7 - 3.8) Ao Diam: 3.3 cm (2.0 - 3.7) AV Cusp: 1.7 cm (1.5 - 2.6) LA Diam: 3.7 cm (2.7 - 3.8) MV EXCURSION: 15.271 mm (> 18.000) MV EF SLOPE: 38 mm/s (70 - 150) EPSS: 0.2 cm MV E Eduard: 0.63 m/s MV DecT: 188 ms MV A Eduard: 0.68 m/s MV E/A Ratio: 0.93 RAP: 5.00 mmHg RVSP: 25.78 mmHg FINDINGS -------- Sinus rhythm. This was a technically adequate study. The left ventricular size is normal. There is mild concentric left ventricular hypertrophy. Overa ll left ventricular systolic function is normal with, an EF between 55 - 60 %. The right ventricle is normal in size. The left atrial size is normal. The right atrial size is normal. There is mild aortic valve sclerosis. There is no evidence of aortic regurgitation. Mild mitral annular calcification present. Mild mitral regurgitation is present. Mild tricuspid regurgitation present. There is no evidence of pulmonary hypertension. The right v entricular systolic pressure, as measured by Doppler, is 25.78mmHg. There is no pulmonic regurgitation present. The aortic root size is normal. There is no pericardial effusion. CONCLUSIONS -------- 1. The left ventricular size is normal. 2. There is mild concentric left ventricular hypertrophy. 3. Overall left ventricular systolic function is normal with, an EF between 55 - 60 %. 4. The right ventricle is normal in size. 5. The left atrial size is normal. 6. The right atrial size is normal. 7. There is mild aortic valve sclerosis. 8. Mild mitral annular calcification present. 9. Mild mitral regurgitation is present. 10. Mild tricuspid regurgitation present. 11. There is no evidence of pulmonary hypertension. 12. The right ventricular systolic pressure, as measured by Doppler, is 25.78mmHg. 13. There is no pulmonic regurgitation present. 14. The aortic root size is normal. 15. There is no pericardial effusion. CIGARETTE INSPECTOR: Bhargavi Mcintyre RDCS
[2018-09-25 11:41] LABS: Glucose,Whole Blood 167 mg/dL (75-99)
[2018-09-25 16:10] VITALS: BP 141/86; PULSE 80; TEMP 98.3
--- NOTE | 2018-09-26 15:11 | P.DS ---
Providers Date of admission: 09/23/18 18:32 Expected date of discharge: 09/25/18 Attending physician: Shen Rose Consults: 09/23/18 18:30 Consult Physician Routine Consulting Provider: [facility] Consult Reason/Comments: chest pain, left upper extremity paresthesias Do you want consulting provider notified?: Yes Primary care physician: Que [facility] Course: This is a 62-year-old male patient of Dr. Fleming with past medical history of hypertension, hyperlipidemia, diabetes mellitus type 2, gastroesophageal reflux disease. Patient states the chest pain is on the left anterior upper chest area that is nonradiating. Nontender. He does state he continues to have numbness to the left face and left arm but is very slight. Patient is normally right-handed. Patient came into [facility] emergency center for evaluation. He has been afebrile, heart rate in the 60s, blood pressure 120/71, pulse ox 95% on room air. CBC is within normal limits, BUN 22 and creatinine 0.87. Blood sugars running between 135 and 170. Troponins have been negative on 3 draws. MRI of the brain revealed multiple small high signal white matter foci with distribution likely related to chronic small vessel ischemia. Demyelinating disease is less likely. No evidence of cortical infarct. Minimal sinusitis. CT angiogram of the neck and CT angiogram of the brain were negative chest x-ray negative. Patient was given full-strength aspirin in the emergency center and placed in the observation unit and cardiology consult requested. Cardiology has ordered Carotid duplex reveals. 09/25: Cardiology has reevaluated. Chest pains are intermittent episodes are improved. Patient did not have any cardiac arrhythmia overnight. Plan is for follow-up as an outpatient to obtain stress test once cervical spine issues are resolved. Carotid duplex shows no hemodynamically significant stenosis. Patient remains afebrile, heart rate 6670s, blood pressure 117/74. Patient will be discharged home today in stable condition. Echocardiogram reveals ejection fraction of 55-60%, mild mitral regurgitation, mild tricuspid regurgitation, no pulmonary hypertension. Discharge diagnoses: 1. Chest pain with negative troponins most likely secondary to musculoskeletal pain. Acute coronary syndrome ruled out. 2. Left-sided facial paresthesia and left upper extremity paresthesia most likely secondary to cervical spine/radiculopathy. All studies have been negative. 3. Hypertension. 4. Hyperlipidemia. 5. Gastroesophageal reflux disease. 6. Diabetes mellitus type 2. Discharge plan: home on Wednesday Impression and plan of care have been directed as dictated by the signing physician. Paula Raines nurse practitioner acting as scribe for signing physician. Patient Condition at Discharge: Good Plan - Discharge Summary Discharge Rx Participant: No New Discharge Prescriptions: New Ibuprofen [Motrin] 600 mg PO Q6HR PRN #60 tab PRN Reason: Pain No Action Simvastatin [Zocor] 20 mg PO HS Lisinopril [Prinivil] 10 mg PO HS Aspirin 81 mg PO DAILY metFORMIN HCL 1,000 mg PO BID Ranitidine HCl 150 mg PO HS glipiZIDE [Glucotrol] 5 mg PO HS Jolley-3 Fatty Acids/Fish Oil [Fish Oil 1,000 mg Softgel] 1 cap PO DAILY Discharge Medication List Aspirin 81 mg PO DAILY 12/05/13 [History] Lisinopril [Prinivil] 10 mg PO HS 12/05/13 [History] Ranitidine HCl 150 mg PO HS 12/05/13 [History] Simvastatin [Zocor] 20 mg PO HS 12/05/13 [History] metFORMIN HCL 1,000 mg PO BID 12/05/13 [History] Jolley-3 Fatty Acids/Fish Oil [Fish Oil 1,000 mg Softgel] 1 cap PO DAILY 12/17/16 [History] glipiZIDE [Glucotrol] 5 mg PO HS 12/17/16 [History] Ibuprofen [Motrin] 600 mg PO Q6HR PRN #60 tab 09/25/18 [Rx] Follow up Appointment(s)/Referral(s): Que Fleming DO [Primary Care Provider] - 1 Week Meliton Beverly MD [STAFF PHYSICIAN] - 1 Week Patient Instructions/Handouts: Transient Ischemic Attack (DC), Chest Pain (DC) Discharge Disposition: HOME SELF-CARE
[2018-09-26] MEDS ORDERED: metFORMIN 500 MG TAB PO SCH ×2 (21:00)
== END 2018-09-25 16:06 | disposition home or self-care (01) ==
LOC: EC 14:45 → 1SOBS 18:32
PROVIDERS: ADMIT Internal Medicine; ATTEND Internal Medicine
DX: R07.89 Other chest pain (principal); R20.0 Anesthesia of skin; R20.2 Paresthesia of skin; R53.1 Weakness; I08.3 Combined rheumatic disorders of mitral, aortic and tricuspid valves; I67.82 Cerebral ischemia; K21.9 Gastro-esophageal reflux disease without esophagitis; I10 Essential (primary) hypertension; E78.5 Hyperlipidemia, unspecified; E11.9 Type 2 diabetes mellitus without complications; F32.9 Major depressive disorder, single episode, unspecified; E66.9 Obesity, unspecified; Z68.29 Body mass index [BMI] 29.0-29.9, adult; Z79.82 Long term (current) use of aspirin; Z79.84 Long term (current) use of oral hypoglycemic drugs; Z79.899 Other long term (current) drug therapy; Z90.49 Acquired absence of other specified parts of digestive tract; Z80.9 Family history of malignant neoplasm, unspecified
CPT/HCPCS: 99285; 36415; 93005; 93306; 80053; 80048; 83735; 84484 ×2; 85025 ×2; 85610; 85730; 71046; 93880; 70496; 70498; 70551; G0378 ×3; Q9967